=== PATIENT | male | born 1950 | race Hispanic/Latino ===

== ENCOUNTER 2021-07-28 10:03 | Inpatient (IN) | payer OTHER ==
[2021-07-28 11:14] LABS: Absolute Lymphocytes (CBC) 1.4 K/uL (0.7-4.9); Basophils % 0.7 % (0-1.3); Hematocrit 39.6 % (39.6-49.0); Lymphocytes % 21.3 % (15.3-44.8); MPV 6.6 fL (7.6-11.3); RBC Red Blood Cell Count 4.44 M/uL (4.33-5.43)
[2021-07-28 11:15] LABS: Protime INR 1.17
--- NOTE | 2021-07-28 11:36 | RAD REPORT ---
EXAM DESCRIPTION: RAD - Chest Single View - 07/28/2021 11:24 am CLINICAL HISTORY: Cough;COPD COMPARISON: None TECHNIQUE: AP portable chest image was obtained 07/28/2021 11:24 am . FINDINGS: Lung volumes are low. Interstitial markings in the right lung field are mildly prominent w ith the baseline unknown. Trachea is in the midline. Extensive mid and lower lung field parenchymal o pacification noted on the left with probable pleural thickening. Pneumonia would be a likely etiology though no acute pneumonia symptoms detailed in the history. Malignant etiology cannot be excluded. Heart and vasculature are normal. No pneumothorax. No acute bony abnormality seen. No acute aortic f indings suspected. IMPRESSION: Left-sided pleural and parenchymal opacification suspicious for pneumonia. Follow-up CT chest imaging may be helpful if the patient has no clinical or laboratory findings to hughes pport pneumonia.
[2021-07-28 11:48] LABS: ALT/SGPT 61 U/L (12-78); AST/SGOT 29 U/L (15-37); Albumin 2.8 g/dL (3.4-5.0); Alkaline Phosphatase 162 U/L (45-117); BUN Blood Urea Nitrogen 9 mg/dL (7-18); Bicarbonate 29 mmol/L (21-32); Bilirubin Direct 0.1 mg/dL (0-0.2); Bilirubin Total 0.5 mg/dL (0.2-1.0); Glucose Level 112 mg/dL (74-106); Lipase 103 U/L (73-393); Magnesium 1.9 mg/dL (1.8-2.4); NT PRO-BNP 73 pg/mL (<125); Protein, Total 8.5 g/dL (6.4-8.2); Sodium Level 139 mmol/L (136-145); Troponin (Emerg Dept Use Only) < 0.02 ng/mL (0.0-0.045)
--- NOTE | 2021-07-28 11:51 | ER ---
Nurse's Notes [facility] Name: Gómez Thakur Jr Age: 71 yrs Sex: Male : 1950 Arrival Date: 07/28/2021 Time: 10:06 Bed 18 Private MD: Diagnosis: COPD/ Chronic obstructive pulmonary disease with (acute) exacerbation;Hypoxemia;Hemoptysis;Pneumonia, unspecified organism-left lower lobe;Coronavirus infection, unspecified;Pneumonia due to SARS-associated coronavirus Presentation: 07/28 10:20 Chief complaint: Patient states: discharged with home O2 via NC from hospital in aa5 [place], [place] with COVID-19 Pneumonia approximately 2 weeks ago. Pt states "I've been having a cough only in the mornings but today I started coughing up blood". 10:20 Method Of Arrival: Wheelchair [facility] 10:20 Coronavirus screen: Client reports previous positive COVID test result. Ebola Screen: aa5 Patient negative for fever greater than or equal to 101.5 degrees Fahrenheit, and additional compatible Ebola Virus Disease symptoms. Initial Sepsis Screen: Does the patient meet any 2 criteria? HR > 90 bpm. Does the patient have a suspected source of infection? Yes:. Risk Assessment: Do you want to hurt yourself or someone else? Patient reports no desire to harm self or others. Onset of symptoms was July 2021. 10:20 Acuity: MARCIA 2 aa5 Historical: - Allergies: 10:24 No Known Allergies; aa5 - PMHx: 10:24 COPD; Pneumonia; aa5 - Immunization history:: Client reports having NOT received the Covid vaccine. - Social history:: Smoking status: Patient denies any tobacco usage or history of. - Family history:: not pertinent. Assessment: 12:20 General: Appears uncomfortable, Behavior is calm, cooperative, appropriate for age. tc5 Pain: Denies pain. Neuro: No deficits noted. Cardiovascular: No deficits noted. Respiratory: Reports shortness of breath on exertion coughed up blood this am. states he was in the hospital 06/30/21 for PNA and COPD exacerbation. further reports he has a positive covid test 6 weeks ago. GI: No deficits noted. : No deficits noted. Musculoskeletal: No deficits noted. Vital Signs: 10:20 BP 121 / 81; Pulse 110; Resp 20 S; Temp 97.8(O); Pulse Ox 88% on 4 lpm NC; aa5 ED Course: 10:06 Patient arrived in ED. am2 10:20 Mere Khan, RN is Primary Nurse. tc5 10:20 Arm band placed on. aa5 10:21 Gurpreet Ravi MD is Attending Physician. verena 10:24 Triage completed. aa5 11:24 XRAY Chest (1 view) In Process Unspecified. EDMS 11:47 Beau Cope is Hospitalizing Provider. verena 12:55 CT Chest For PE Angio In Process Unspecified. EDMS Administered Medications: 11:48 Drug: LevaQUIN (levofloxacin) 500 mg Volume: 100 ml; Route: IVPB; Infused Over: 60 tc5 mins; Site: left antecubital; 11:48 Drug: SOLU-Medrol (methylPrednisoLONE) 125 mg Route: IVP; Site: left antecubital; tc5 14:16 Follow up: Response: No adverse reaction kg 11:48 Drug: NS 0.9% 1000 ml Route: IV; Rate: 75 ml/hr; Site: left antecubital; tc5 11:49 Drug: Pepcid (famotidine) 20 mg Route: IVP; Site: left antecubital; tc5 14:16 Follow up: Response: No adverse reaction kg 11:49 Drug: Xopenex (levalbuterol) 1.25 mg Route: Inhalation; tc5 11:49 Drug: AtroVENT (ipratropium) Aerosol 0.5 mg Route: Inhalation; tc5 13:12 Drug: Zosyn (piperacillin-tazobactam) 3.375 grams Route: IVPB; Infused Over: 60 mins; tc5 Site: left antecubital; 14:15 Follow up: Response: No adverse reaction; IV Status: Completed infusion; IV Intake: kg 100ml Intake: 14:15 IV: 100ml; Total: 100ml. kg Outcome: 11:51 Decision to Hospitalize by Provider. verena 19:03 Patient left the ED. aa5 Signatures: Dispatcher [employer] EDMS Gurpreet Ravi MD MD cha Calderon, Audri, RN RN aa5 Liana Jones am2 Kelly Vela RN RN kg Cassaboom, Mere, RN RN tc5
--- NOTE | 2021-07-28 11:52 | EDPHYS ---
[facility] Name: Gómez Thakur Jr Age: 71 yrs Sex: Male : 1950 Arrival Date: 07/28/2021 Time: 10:06 Bed 18 Private MD: ED Physician Gurpreet Ravi HPI: 07/28 11:40 This 71 yrs old Male presents to ER via Wheelchair with complaints of spitting verena up blood, COPD. 11:40 This 71 yrs old Male presents to ER via Wheelchair with complaints of spitting verena up blood, COPD. 11:40 The patient has shortness of breath at rest, with light activity. Onset: The verena symptoms/episode began/occurred 2 day(s) ago. Duration: The symptoms are continuous, and are steadily getting worse. The patient's shortness of breath is aggravated by nothing, is alleviated by nothing. Associated signs and symptoms: Pertinent positives: non-productive cough, hemoptysis. Severity of symptoms: At their worst the symptoms were moderate in the emergency department the symptoms are unchanged. The patient or guardian reports cough, described as mild, difficulty breathing. Severity of symptoms: At their worst the symptoms were. Modifying factors: The symptoms are alleviated by nothing, the symptoms are aggravated by exertion, talking. Historical: - Allergies: 10:24 No Known Allergies; aa5 - PMHx: 10:24 COPD; Pneumonia; aa5 - Immunization history:: Client reports having NOT received the Covid vaccine. - Social history:: Smoking status: Patient denies any tobacco usage or history of. - Family history:: not pertinent. ROS: 11:40 Constitutional: Negative for fever, chills, and weight loss, Eyes: Negative for injury, verena pain, redness, and discharge, ENT: Negative for injury, pain, and discharge, Neck: Negative for injury, pain, and swelling, Cardiovascular: Negative for chest pain, palpitations, and edema, Abdomen/GI: Negative for abdominal pain, nausea, vomiting, diarrhea, and constipation, Back: Negative for injury and pain, : Negative for injury, bleeding, discharge, and swelling, MS/Extremity: Negative for injury and deformity, Skin: Negative for injury, rash, and discoloration, Neuro: Negative for headache, weakness, numbness, tingling, and seizure, Psych: Negative for depression, anxiety, suicide ideation, homicidal ideation, and hallucinations, Allergy/Immunology: Negative for hives, rash, and allergies, Endocrine: Negative for neck swelling, polydipsia, polyuria, polyphagia, and marked weight changes, Hematologic/Lymphatic: Negative for swollen nodes, abnormal bleeding, and unusual bruising. 11:40 Respiratory: Positive for cough, "sounds productive", dyspnea on exertion, hemoptysis, shortness of breath, at rest. 11:40 MS/extremity: Negative for acute changes. Exam: 11:40 Constitutional: This is a well developed, well nourished patient who is awake, alert, verena and in no acute distress. Head/Face: Normocephalic, atraumatic. Eyes: Pupils equal round and reactive to light, extra-ocular motions intact. Lids and lashes normal. Conjunctiva and sclera are non-icteric and not injected. Cornea within normal limits. Periorbital areas with no swelling, redness, or edema. ENT: Nares patent. No nasal discharge, no septal abnormalities noted. Tympanic membranes are normal and external auditory canals are clear. Oropharynx with no redness, swelling, or masses, exudates, or evidence of obstruction, uvula midline. Mucous membranes moist. Neck: Trachea midline, no thyromegaly or masses palpated, and no cervical lymphadenopathy. Supple, full range of motion without nuchal rigidity, or vertebral point tenderness. No Meningismus. Chest/axilla: Normal chest wall appearance and motion. Nontender with no deformity. No lesions are appreciated. Abdomen/GI: Soft, non-tender, with normal bowel sounds. No distension or tympany. No guarding or rebound. No evidence of tenderness throughout. Back: No spinal tenderness. No costovertebral tenderness. Full range of motion. Male : Normal genitalia with no discharge or lesions. Skin: Warm, dry with normal turgor. Normal color with no rashes, no lesions, and no evidence of cellulitis. MS/ Extremity: Pulses equal, no cyanosis. Neurovascular intact. Full, normal range of motion. Neuro: Awake and alert, GCS 15, oriented to person, place, time, and situation. Cranial nerves II-XII grossly intact. Motor strength 5/5 in all extremities. Sensory grossly intact. Cerebellar exam normal. Normal gait. Psych: Awake, alert, with orientation to person, place and time. Behavior, mood, and affect are within normal limits. 11:40 Cardiovascular: Rate: tachycardic, Rhythm: regular, Pulses: Pulses are 4+ in bilateral radial, brachial, femoral, popliteal, posterior tibial and and dorsalis pedis arteries.. Heart sounds: normal, Edema: is not appreciated, JVD: is not appreciated. Vital Signs: 10:20 BP 121 / 81; Pulse 110; Resp 20 S; Temp 97.8(O); Pulse Ox 88% on 4 lpm NC; aa5 MDM: 10:21 Patient medically screened. verena 11:44 Differential diagnosis: Anemia asthma, Bronchitis CHF exacerbation, pneumonia, verena pulmonary edema, reactive airway disease, Sepsis. Antibiotic administration: Levaquin given, zosyn. The patient's Wells Deep Vein Thrombosis Score was calculated as follows: Heart Rate >100 BPM (1.5 Pts) Total Score: 0-2 Pts- Low Risk. Differential Diagnosis: Obstructed Airway Bronchitis Sinusitis Asthma Exacerbation Pneumonia. The patient's pulmonary embolism risk score was calculated as follows: the patients heart rate is greater than 100 beats per minute (1.5 Pts) Total Score: 0-2 points. This patient was found to be at low risk for a pulmonary embolism by using the Well's assessment criteria. Immunization status: Pneumococcal vaccine: Influenza vaccine: Data reviewed: vital signs, nurses notes, lab test result(s), EKG, radiologic studies, CT scan, plain films. Data interpreted: conveyor monitor: rate is 110 beats/min, rhythm is regular, Pulse oximetry: on room air is 88 %. Test interpretation: by ED physician or midlevel provider: ECG, plain radiologic studies. 07/28 10:29 Order name: Basic Metabolic Panel; Complete Time: 14: [facility] 07/28 10:29 Order name: CBC with Diff; Complete Time: 11:39 [facility] 07/28 10:29 Order name: LFT's; Complete Time: 14:07/28 10:29 Order name: Magnesium; Complete Time: 14:26 07/28 10:29 Order name: NT PRO-BNP; Complete Time: 14:26 07/28 10:29 Order name: PT-INR; Complete Time: 11:39 07/28 10:29 Order name: Troponin (emerg Dept Use Only); Complete Time: 14: [facility] 07/28 10:29 Order name: XRAY Chest (1 view); Complete Time: 11:39 [facility] 07/28 10:29 Order name: Lipase; Complete Time: 14:26 [facility] 07/28 10:29 Order name: Blood Culture Adult (2) [facility] 07/28 13:37 Order name: SARS-COV-2 RT PCR; Complete Time: 14:26 [facility] 07/28 16:50 Order name: Lipid Profile [facility] 07/28 17:24 Order name: Hemoglobin A1c [facility] 07/28 10:29 Order name: EKG; Complete Time: 10:32 [facility] 07/28 10:29 Order name: Cardiac monitoring; Complete Time: 11:33 [facility] 07/28 10:29 Order name: EKG - Nurse/Tech [facility] 07/28 10:29 Order name: IV Saline Lock; Complete Time: 11:32 [facility] 07/28 10:29 Order name: Labs collected and sent; Complete Time: 11:32 [facility] 07/28 10:29 Order name: O2 Per Protocol; Complete Time: 11:33 [facility] 07/28 10:29 Order name: O2 Sat Monitoring; Complete Time: 11:33 [facility] 07/28 10:29 Order name: CT Chest For PE Angio; Complete Time: 14:26 [facility] Administered Medications: 11:48 Drug: LevaQUIN (levofloxacin) 500 mg Volume: 100 ml; Route: IVPB; Infused Over: 60 tc5 mins; Site: left antecubital; 11:48 Drug: SOLU-Medrol (methylPrednisoLONE) 125 mg Route: IVP; Site: left antecubital; tc5 14:16 Follow up: Response: No adverse reaction kg 11:48 Drug: NS 0.9% 1000 ml Route: IV; Rate: 75 ml/hr; Site: left antecubital; tc5 11:49 Drug: Pepcid (famotidine) 20 mg Route: IVP; Site: left antecubital; tc5 14:16 Follow up: Response: No adverse reaction kg 11:49 Drug: Xopenex (levalbuterol) 1.25 mg Route: Inhalation; tc5 11:49 Drug: AtroVENT (ipratropium) Aerosol 0.5 mg Route: Inhalation; tc5 13:12 Drug: Zosyn (piperacillin-tazobactam) 3.375 grams Route: IVPB; Infused Over: 60 mins; tc5 Site: left antecubital; 14:15 Follow up: Response: No adverse reaction; IV Status: Completed infusion; IV Intake: kg 100ml Disposition Summary: 07/28/21 11:51 Hospitalization Ordered Hospitalization Status: Inpatient Admission verena Provider: Beau Cope cha Location: Telemetry/MedSurg (Inpatient) verena Condition: Stable verena Problem: new verena Symptoms: have improved verena Bed/Room Type: Standard verena Room Assignment: 431(07/28/21 15:50) bd Diagnosis - COPD/ Chronic obstructive pulmonary disease with (acute) exacerbation verena - Hypoxemia verena - Hemoptysis verena - Pneumonia, unspecified organism - left lower lobe verena - Coronavirus infection, unspecified verena - Pneumonia due to SARS-associated coronavirus verena Forms: - Medication Reconciliation Form verena - SBAR form verena Signatures: Dispatcher [employer] EDMS Danelle Mesa Corey, MD MD cha Calderon, Audri, RN RN aa5 Mere Khan RN RN tc5 Kelly Vela RN kg Corrections: (The following items were deleted from the chart) 11:42 10:31 CORONAVIRUS+LAB.BRZ ordered. EDMS EDMS 15:50 11:51 verena bd
[2021-07-28] MEDS ORDERED: METHYLPREDNISOLONE 125 MG INJ ONE (12:07)
[2021-07-28] MEDS ORDERED: LEVALBUTEROL 1.25 MG/3 ML NEB ONE (12:08)
[2021-07-28] MEDS ORDERED: NA CHLORIDE 0.9% 1,000 ML ONE (12:08)
[2021-07-28] MEDS ORDERED: IPRATROPIUM BROM 0.5MG/2.5ML ONE (12:08)
[2021-07-28] MEDS ORDERED: Levofloxacin500mg IV 500 MG/100 ML BAG IV ONE (12:08)
[2021-07-28] MEDS ORDERED: FAMOTIDINE 20 MG/2 ML VIAL IV ONE (12:09)
[2021-07-28] MEDS ORDERED: PIPERACIL/TAZO 3.375 GM VIAL IV ONE (12:48)
[2021-07-28] MEDS ORDERED: NA CHLORIDE 0.9% 100 ML ONE (12:49)
--- NOTE | 2021-07-28 13:06 | RAD REPORT ---
EXAM DESCRIPTION: CT - Chest For Pe Angio - 07/28/2021 12:55 pm CLINICAL HISTORY: Chest pain. COPD;Cough COMPARISON: No comparisons TECHNIQUE: CT angiogram of the pulmonary arteries was performed with MIP. All CT scans are performed using dose optimization technique as appropriate and may include automated exposure control or mA/KV adjustment according to patient size. FINDINGS: No evidence of pulmonary thromboembolism. No acute aortic finding demonstrated. Extensive airspace consolidation is present in both lungs, greater on the left. Small left pleural effusion. No concerning bony finding. Cholecystectomy. IMPRESSION: No evidence of pulmonary thromboembolism. Extensive airspace consolidation in both lungs, greater on the left most compatible with infection/ p neumonia. Small left pleural effusion.
[2021-07-28] MEDS ORDERED: LABETALOL 20 MG/4ML SYRINGE IV PRN (15:38)
[2021-07-28] MEDS ORDERED: ACETAMINOPHEN 500 MG TAB PO PRN (15:41)
[2021-07-28] MEDS ORDERED: ONDANSETRON 4 MG/2 ML VIAL IV PRN (15:41)
[2021-07-28] MEDS ORDERED: GUAIFENESIN/CODEINE 5ML UCUP PO PRN (15:47)
[2021-07-28] MEDS ORDERED: HYDROCODONE/APAP 5/325 MG TAB PO PRN (15:47)
--- NOTE | 2021-07-28 15:51 | P.HP ---
Certification for Inpatient Patient admitted to: Inpatient With expected LOS: >2 Midnights Patient will require the following post-hospital care: None Practitioner: I am a practitioner with admitting privileges, knowledge of patient current condition, hospital course, and medical plan of care. Services: Services provided to patient in accordance with Admission requirements found in Title 42 Section 412.3 of the Code of Federal Regulations Patient History Date of Service: 07/28/21 Reason for admission: SOB and hemoptysis History of Present Illness: Patient is a 71-year-old male with a past medical history significant for COPD who presents with complaint of hemoptysis and shortness of breath onset this morning. Patient reports associated signs and symptoms of cough, headache, weakness, fatigue and loss of appetite. Patient reported that he was recently treated at the hospital in [place] for 3 weeks for similar symptoms. Patient reported that he was discharged from the hospital 1 week ago. Patient indicated that when he was discharged he was given a list of medications but he could not afford any of the medicines and hence did not take any medications that he was prescribed from the hospital. Patient denies any other signs or symptoms. Symptoms are aggravated relieved by nothing. Patient decided to present to the hospital due to worsening symptoms. Allergies No Known Allergies Allergy (Unverified 07/28/21 17:19) Home medications list reviewed: No Home Medications: NK [No Home Meds] 07/28/21 - Past Medical/Surgical History -: COPD Past Surgical History: Reviewed- Non-Contributory - Family History Family History: Reviewed- Non-Contributory - Social History Smoking Status: Never smoker Alcohol use: No CD- Drugs: No Caffeine use: No Place of Residence: Home Review of Systems General: Weakness, Malaise, As per HPI Eyes: Unremarkable ENT: Unremarkable Respiratory: Cough, Shortness of Breath, Hemoptysis, SOB with Excertion Cardiovascular: Unremarkable Gastrointestinal: Unremarkable Genitourinary: Unremarkable Musculoskeletal: Unremarkable Integumentary: Unremarkable Neurological: Unremarkable Lymphatics: Unremarkable Physical Examination - Physical Exam General: Alert, Oriented x3 HEENT: Atraumatic, PERRLA, Mucous membr. moist/pink, EOMI, Sclerae nonicteric Neck: Supple, 2+ carotid pulse no bruit, No LAD, Without JVD or thyroid abnormality Respiratory: Diminished Cardiovascular: No edema, Regular rate/rhythm, Normal S1 S2 Capillary refill: <2 Seconds Gastrointestinal: Normal bowel sounds, No tenderness Musculoskeletal: No clubbing, No tenderness Integumentary: No rashes Neurological: Normal gait, Normal speech, Normal tone, Normal affect Lymphatics: No axilla or inguinal lymphadenopathy External genitalia: Deferred Rectal: Deferred - Studies Laboratory Data (last 24 hrs) 07/28/21 10:49: PT 13.5 H, INR 1.17 07/28/21 10:49: WBC 6.50, Hgb 13.4 L, Hct 39.6, Plt Count 414 H 07/28/21 10:49: Sodium 139, Potassium 4.0, BUN 9, Creatinine 0.49 L, Glucose 112 H, Magnesium 1.9, Total Bilirubin 0.5, AST 29, ALT 61, Alkaline Phosphatase 162 H, Lipase 103 Assessment and Plan - Plan --COVID-19 pneumonia. Pulmonology consulted. Patient placed on O2 therapy, steroids and oral supplements. Inflammatory markers pending. Will await further recommendations from apron trimmer. --COVID-19 infection. Continue current treatment regimen. Continue contact and airborne precautions. --Acute on chronic COPD exacerbation. Continue current treatment regimen. --Hemoptysis. Patient reports 3 episodes of hemoptysis this morning. H&H stable. Patient denies any further episodes of hemoptysis. Further management per apron trimmer. Continue supportive care. --New onset DM2. BS monitoring with sliding scale insulin. --Dyslipidemia. Further management per patient's PCP --DVT prophylaxis with heparin subQ. I have had discussion about advanced directives with the patient during this hospital admission. Addressed code status and goals of care. Spent more than 30 minutes. Case discussed withpatient and nurse. The following document was completed using voice recognition software. This can produce talend etl developer errors that can at times significantly distort words and phrases. Please interpret any aspect of the note that is nonsensical in light of this fact. Discharge Plan: Home Plan to discharge in: 48 Hours - Advance Directives Does patient have a Living Will: No Does patient have a Durable POA for Healthcare: No - Code Status/Comfort Care Code Status Assessed: Yes Code Status: Full Code Physician Review: Patient Assessed, Agree with Above Assessment and Plan Critical Care: No
[2021-07-28 16:57] VITALS: BMI 23.8
[2021-07-28] MEDS ORDERED: D50W 25 GM/50 ML SYRINGE IV PRN (18:27)
[2021-07-28] MEDS ORDERED: GLUCAGON 1 MG/VIAL IM PRN (18:27)
[2021-07-28] MEDS: METHYLPREDNISOLONE 40 MG INJ IV SCH (20:53)
[2021-07-28] MEDS: HEPARIN 5000 UNIT/ML 1 ML VIAL SQ SCH (20:54)
[2021-07-28] MEDS: ASCORBIC ACID 500 MG TABLET PO SCH (20:54)
[2021-07-28] MEDS: FAMOTIDINE 20 MG TAB PO SCH (20:54)
[2021-07-28] MEDS: INSULIN -REGULAR HUMAN 50 UNIT/0.5 ML ML SQ SCH (20:55)
[2021-07-28] MEDS ORDERED: MELATONIN 5 MG TABLET PO SCH (21:00)
[2021-07-29 04:23] LABS: Absolute Lymphocytes (CBC) 1.1 K/uL (0.7-4.9); Basophils % 0.8 % (0-1.3); Hematocrit 37.4 % (39.6-49.0); Lymphocytes % 10.9 % (15.3-44.8); RBC Red Blood Cell Count 4.18 M/uL (4.33-5.43)
[2021-07-29 04:53] LABS: ALT/SGPT 53 U/L (12-78); AST/SGOT 19 U/L (15-37); Albumin 2.7 g/dL (3.4-5.0); Alkaline Phosphatase 153 U/L (45-117); BUN Blood Urea Nitrogen 12 mg/dL (7-18); Bicarbonate 28 mmol/L (21-32); Bilirubin Total 0.5 mg/dL (0.2-1.0); Blood Morphology Comment NOT SEEN (NOT SEEN); Glucose Level 182 mg/dL (74-106); Platelet Estimate ADEQ; Potassium 4.3 mmol/L (3.5-5.1); Protein, Total 8.1 g/dL (6.4-8.2); Sodium Level 138 mmol/L (136-145); Troponin I < 0.02 ng/mL (0.0-0.045)
--- NOTE | 2021-07-29 06:37 | P.PN ---
Subjective Date of Service: 07/29/21 Chief Complaint: SOB and hemoptysis Subjective: Improving (Feeling better, breathing more comfortably. No hemoptysis since yesterday. Still with dyspnea) Review of Systems 10-point ROS is otherwise unremarkable Physical Examination - Vital Signs Temperature: 97.8 F Blood Pressure: 116/75 Pulse: 101 Respirations: 20 Pulse Ox (%): 96 - Studies Laboratory Data (last 24 hrs) 07/28/21 10:49: Triglycerides 177 H, Cholesterol 196, HDL Cholesterol 31 L, Cholesterol/HDL Ratio 6.32 07/28/21 10:49: PT 13.5 H, INR 1.17 07/28/21 10:49: WBC 6.50, Hgb 13.4 L, Hct 39.6, Plt Count 414 H 07/28/21 10:49: Sodium 139, Potassium 4.0, BUN 9, Creatinine 0.49 L, Glucose 112 H, Magnesium 1.9, Total Bilirubin 0.5, AST 29, ALT 61, Alkaline Phosphatase 162 H, Lipase 103 Assessment & Plan Physician Review Additional Text: Physical Exam General: Alert, Oriented x3 HEENT: Normal conjunctiva, sclera anicteric Respiratory: Nonlabored respirations on 4 L nasal cannula Cardiovascular: No edema, Regular rate/rhythm, Normal S1 S2 Gastrointestinal: Soft, nontender, nondistended Integumentary: No rashes Problem list Acute hypoxemic respiratory failure secondary to COPD exacerbation, possible community-acquired pneumonia Recent COVID-19 pneumonia on home oxygen Hemoptysis DM 2, new onset Dyslipidemia Inflammatory markers elevated, unclear exact etiology of hemoptysis. Possible community-acquired pneumonia Patient may have undiagnosed COPD, has significant long history of smoking Pulmonology consulted Continue treatment regimen with antibiotics, nebs, steroids Insulin sliding scale Dispo: Anticipate DC home tomorrow if continues to improve Has home O2 set up and ready Time Spent Managing Pts Care (In Minutes): 35
[2021-07-29 07:27] LABS: Urine Appearance CLEAR (Clear); Urine Bilirubin NEGATIVE (Negative); Urine Blood NEGATIVE (Negative); Urine Color YELLOW (Yellow); Urine Glucose NEGATIVE (Negative); Urine Protein NEGATIVE (Negative); Urine Specific Gravity >=1.030 (1.005-1.030); Urine Urobilinogen 0.2 mg/dL (0.2-1.0); Urine pH 5.5 (5.0-7.0)
[2021-07-29] MEDS: INSULIN -REGULAR HUMAN 50 UNIT/0.5 ML ML SQ SCH ×4 (07:30→21:00)
[2021-07-29 07:49] LABS: Urine Microscopic Reflex NO UMIC
[2021-07-29] MEDS: THIAMINE HCL 100 MG TABLET PO SCH (08:21)
[2021-07-29] MEDS: FAMOTIDINE 20 MG TAB PO SCH ×2 (08:21→20:16)
[2021-07-29] MEDS: VITAMIN D 5,000 UNIT CAP PO SCH (08:21)
[2021-07-29] MEDS: ASCORBIC ACID 500 MG TABLET PO SCH ×2 (08:21→20:16)
[2021-07-29] MEDS: METHYLPREDNISOLONE 40 MG INJ IV SCH (08:22)
[2021-07-29] MEDS: HEPARIN 5000 UNIT/ML 1 ML VIAL SQ SCH ×2 (08:26→20:16)
[2021-07-29] MEDS ORDERED: ZINC SULFATE 220 MG CAP PO SCH (09:00)
[2021-07-29 09:08] VITALS: O2SAT 94
--- NOTE | 2021-07-29 09:50 | P.CNS ---
Date of Consult: 07/29/21 Reason for Consult: Hemoptysis Chief Complaint: SOB and hemoptysis History of Present Illness: Age 71 hx of COPD AW worseing SOB, cough recently hosp at [place] for [facility] a week ago/ c/o hemoptysis/ Visitng here/ Doing well Allergies No Known Allergies Allergy (Unverified 07/28/21 17:19) Home Medications: NK [No Home Meds] 07/28/21 - Past Medical/Surgical History -: COPD - Social History Alcohol use: No CD- Drugs: No Caffeine use: No Place of Residence: Home Review of Systems General: Weakness Respiratory: Cough, Shortness of Breath, As per HPI Physical Examination Temp Pulse Resp BP Pulse Ox 97.9 F 93 H 21 H 103/70 97 07/29/21 08:00 07/29/21 08:00 07/29/21 08:00 07/29/21 08:00 07/29/21 08:00 General: Alert, In no apparent distress, Oriented x3, Cooperative Respiratory: Expiratory wheezes Laboratory Data (last 24 hrs) 07/28/21 10:49: Triglycerides 177 H, Cholesterol 196, HDL Cholesterol 31 L, Cholesterol/HDL Ratio 6.32 07/28/21 10:49: PT 13.5 H, INR 1.17 07/28/21 10:49: WBC 6.50, Hgb 13.4 L, Hct 39.6, Plt Count 414 H 07/28/21 10:49: Sodium 139, Potassium 4.0, BUN 9, Creatinine 0.49 L, Glucose 112 H, Magnesium 1.9, Total Bilirubin 0.5, AST 29, ALT 61, Alkaline Phosphatase 162 H, Lipase 103 - Problems (1) Pneumonia Current Visit: Yes Status: Acute Plan: Age 71 Visiting [place] [facility] pneumonia/ HXof COVID. COPD Doubt COVID add pred and levaquin/ labs reviewed/ labs ctreviewed/ poss DCAM onO2 Dx COPD Qualifiers: Laterality: left Lung location: upper lobe of lung
[2021-07-29] MEDS: levoFLOXacin 750 MG TAB PO SCH (11:45)
[2021-07-29] MEDS: DULERA 200/5 (MOMETASONE/FORMOTEROL) INHALER IH SCH ×2 (11:45→21:00)
[2021-07-29] MEDS ORDERED: PNEUMOCOCCAL VACCINE 0.5 ML IMVAC ONE (16:00)
[2021-07-29] MEDS: predniSONE 20 MG TAB PO SCH (16:16)
[2021-07-30 05:30] LABS: Absolute Lymphocytes (CBC) 1.8 K/uL (0.7-4.9); Basophils % 0.6 % (0-1.3); Hematocrit 36.1 % (39.6-49.0); Lymphocytes % 10.7 % (15.3-44.8); MPV 7.4 fL (7.6-11.3); RBC Red Blood Cell Count 3.98 M/uL (4.33-5.43)
[2021-07-30] MEDS: INSULIN -REGULAR HUMAN 50 UNIT/0.5 ML ML SQ SCH (07:30)
[2021-07-30 07:54] LABS: BUN Blood Urea Nitrogen 14 mg/dL (7-18); Bicarbonate 31 mmol/L (21-32); C-Reactive Protein 5.01 mg/L (<3.00); Ferritin 350.4 ng/mL (26-388); Glucose Level 147 mg/dL (74-106); Magnesium 2.2 mg/dL (1.8-2.4); Sodium Level 140 mmol/L (136-145); Troponin I < 0.02 ng/mL (0.0-0.045)
[2021-07-30] MEDS: DULERA 200/5 (MOMETASONE/FORMOTEROL) INHALER IH SCH (09:00)
[2021-07-30] MEDS: FAMOTIDINE 20 MG TAB PO SCH (09:26)
[2021-07-30] MEDS: levoFLOXacin 750 MG TAB PO SCH (09:26)
[2021-07-30] MEDS: VITAMIN D 5,000 UNIT CAP PO SCH (09:26)
[2021-07-30] MEDS: ASCORBIC ACID 500 MG TABLET PO SCH (09:26)
[2021-07-30] MEDS: THIAMINE HCL 100 MG TABLET PO SCH (09:27)
[2021-07-30] MEDS: predniSONE 20 MG TAB PO SCH (09:27)
[2021-07-30] MEDS: HEPARIN 5000 UNIT/ML 1 ML VIAL SQ SCH (09:28)
[2021-07-30 11:58] VITALS: BP 138/81; TEMP 98.3
--- NOTE | 2021-07-30 20:02 | P.DS ---
Admission Date: 07/28/21 Discharge Date: 07/30/21 Disposition: ROUTINE DISCHARGE Discharge Condition: GOOD Reason for Admission: SOB and hemoptysis Consultations: Pulmonology - Dr. Arora Procedures: CXR (07/28): FINDINGS: Lung volumes are low. Interstitial markings in the right lung field are mildly prominent with the baseline unknown. Trachea is in the midline. Extensive mid and lower lung field parenchymal opacification noted on the left with probable pleural thickening. Pneumonia would be a likely etiology though no acute pneumonia symptoms detailed in the history. Malignant etiology cannot be excluded. Heart and vasculature are normal. No pneumothorax. No acute bony abnormality seen. No acute aortic findings suspected. IMPRESSION: Left-sided pleural and parenchymal opacification suspicious for pneumonia. CTA Chest (07/28): FINDINGS: No evidence of pulmonary thromboembolism. No acute aortic finding demonstrated. Extensive airspace consolidation is present in both lungs, greater on the left. Small left pleural effusion. No concerning bony finding. Cholecystectomy. IMPRESSION: No evidence of pulmonary thromboembolism. Extensive airspace consolidation in both lungs, greater on the left most compatible with infection/ pneumonia. Small left pleural effusion. Problem list Acute hypoxemic respiratory failure secondary to COPD exacerbation, possible community-acquired pneumonia Recent COVID-19 pneumonia on home oxygen Hemoptysis DM 2, new onset Dyslipidemia Brief History of Present Illness: 71-year-old male with a past medical history significant for COPD who presents with complaint of hemoptysis and shortness of breath onset this morning. Patient reports associated signs and symptoms of cough, headache, weakness, fatigue and loss of appetite. Patient reported that he was recently treated at the hospital in [place] for 3 weeks for similar symptoms. Patient reported that he was discharged from the hospital 1 week ago. Patient indicated that when he was discharged he was given a list of medications but he could not afford any of the medicines and hence did not take any medications that he was prescribed from the hospital. Patient denies any other signs or symptoms. Symptoms are aggravated relieved by nothing. Patient decided to present to the hospital due to worsening symptoms Hospital Course: Patient had improvement with treatment with steroids. Pulmonology was consulted and felt his symptoms were more related to a COPD exacerbation vs COVID-19 pneumonia. He was started on Dulera and levaquin per pulm recommendations and continued to have improvement. He was discharged home to continue this treatment. On day of discharge he did not have any further hemoptysis for nearly 48 hrs and was breathing comfortably on 3L NC. Follow up: PCP in 3-[address] Arora (Pul) in ~1 week. Vital Signs/Physical Exam: Physical Exam General: Alert, Oriented x3 HEENT: Normal conjunctiva, sclera anicteric Respiratory: Nonlabored respirations on 3 L nasal cannula Cardiovascular: No edema, Regular rate/rhythm, Normal S1 S2 Gastrointestinal: Soft, nontender, nondistended Integumentary: No rashes Temp Pulse Resp BP Pulse Ox 98.3 F 71 23 H 138/81 98 07/30/21 11:53 07/30/21 11:53 07/30/21 11:53 07/30/21 11:53 07/30/21 11:53 Laboratory Data at Discharge: WBC 17.10 K/uL (4.3-10.9) H D 07/30/21 04:15 Hgb 11.9 g/dL (13.6-17.9) L 07/30/21 04:15 Hct 36.1 % (39.6-49.0) L 07/30/21 04:15 Plt Count 395 K/uL (152-406) 07/30/21 04:15 PT 13.5 SECONDS (9.5-12.5) H 07/28/21 10:49 INR 1.17 07/28/21 10:49 Sodium 140 mmol/L (136-145) 07/30/21 04:15 Potassium 4.0 mmol/L (3.5-5.1) 07/30/21 04:15 BUN 14 mg/dL (7-18) 07/30/21 04:15 Creatinine 0.61 mg/dL (0.55-1.3) 07/30/21 04:15 Glucose 147 mg/dL (74-106) H 07/30/21 04:15 Magnesium 2.2 mg/dL (1.8-2.4) 07/30/21 04:15 Total Bilirubin 0.5 mg/dL (0.2-1.0) 07/29/21 04:01 AST 19 U/L (15-37) 07/29/21 04:01 ALT 53 U/L (12-78) 07/29/21 04:01 Alkaline Phosphatase 153 U/L (45-117) H 07/29/21 04:01 Troponin I < 0.02 ng/mL (0.0-0.045) 07/30/21 04:15 Triglycerides 177 mg/dL (<150) H 07/28/21 10:49 Cholesterol 196 mg/dL (<200) 07/28/21 10:49 HDL Cholesterol 31 mg/dL (40-60) L 07/28/21 10:49 Cholesterol/HDL Ratio 6.32 07/28/21 10:49 Lipase 103 U/L (73-393) 07/28/21 10:49 Home Medications: Albuterol Inhaler [Ventolin Inhaler*] 2 puff IH Q6H PRN 30 Days #1 hfa.[email or web address] 07/30/21 Mometasone/Formoterol [Dulera 200 Mcg/5 Mcg Inhaler] 2 puff IH BID inhaler 07/30/21 levoFLOXacin [Levaquin*] 750 mg PO DAILY 7 Days #7 tab 07/30/21 predniSONE [Prednisone*] 20 mg PO SEECOM 14 Days #21 tab 07/30/21 New Medications: levoFLOXacin [Levaquin*] 750 mg PO DAILY 7 Days #7 tab predniSONE [Prednisone*] 20 mg PO SEECOM 14 Days #21 tab Albuterol Inhaler [Ventolin Inhaler*] 2 puff IH Q6H PRN 30 Days #1 hfa.[email or web address].[email or web address] PRN Reason: Shortness Of Breath Physician Discharge Instructions: Your imaging revealed ongoing findings consistent with recent COVID-19 pneumonia and likely COPD. You improved with steroids and oxygen supplementation. Pulmonology was consulted and recommended treatment with antibiotic as well. You are discharged home with prednisone, levaquin, and inhalers. Please follow up with your PCP in 3-5 days. Please follow up with Dr. Arora in ~1 week. Do not use a long oxygen tube, this will lower the effect of how much oxygen you are actually receiving. Diet: Regular Activity: Ad kyung Followup: Georgi Arora MD [ACTIVE - CAN ADMIT] - OOT,OOT [Primary Care Provider] - Time spent managing pt's care (in minutes): 40
== END 2021-07-30 10:55 | disposition home or self-care (01) | DRG 177 ==
LOC: ER 10:03 → ERHOLD 15:24 → 4TH 18:54
PROVIDERS: ADMIT Internal Medicine; ATTEND Internal Medicine
DX: U07.1 COVID-19 (principal); J12.82 Pneumonia due to coronavirus disease 2019; J18.9 Pneumonia, unspecified organism; J44.0 Chronic obstructive pulmonary disease with (acute) lower respiratory infection; R04.2 Hemoptysis; J44.1 Chronic obstructive pulmonary disease with (acute) exacerbation; E11.9 Type 2 diabetes mellitus without complications; E78.5 Hyperlipidemia, unspecified; Z99.81 Dependence on supplemental oxygen
CPT/HCPCS: 36415; 71045; 71275; 80048; 80053; 80061; 80076; 81003; 82728; 82947; 83036; 83690; 83735; 83880; 84145; 84484; 85025; 85379; 85610; 86140; 87040; 87070; 87205; 93005; 94010; 96365; 96375; 99284; J1644; J2543; J2920; J2930; J7030; J7512; J7606; Q9967; U0003